=== PATIENT | male | born 1955 | race African-American/Black ===

== ENCOUNTER 2023-10-27 10:37 | Emergency (ER) | payer OTHER ==
[2023-10-27 10:48] VITALS: BMI 31.3
[2023-10-27] MEDS ORDERED: SODIUM CHLORIDE 1,000 ML IV SCH (12:00)
[2023-10-27] MEDS ORDERED: SODIUM CHLORIDE 2,722 ML IV ONE (12:02)
[2023-10-27] MEDS ORDERED: PIPERACILLIN/TAZOBACTAM 4.5 GM VIAL IVPB ONE (12:03)
[2023-10-27] MEDS ORDERED: VANCOMYCIN 1,000 MG in DEXTROSE 5%-WATER - 250 ML IVPB ONE (12:03)
[2023-10-27] MEDS ORDERED: PIPERACILLIN/TAZOB 4.5 GM 4.5 GM/100 ML BAG IVPB ONE (13:19)
[2023-10-27 13:20] LABS: HEMATOCRIT 32.7 % (35.4-49); HEMOGLOBIN 9.9 GM/dL (11.7-16.9); MCH 28.3 pg (25.7-33.7); MCHC 30.3 g/dl (32.0-35.9); MEAN CELL VOLUME 93.5 fl (80-96); MEAN PLT VOLUME 10.6 fl (7.5-11.1); PLATELET COUNT 292 10^3/uL (134-434); RDW 14.7 % (11.9-15.9); WHITE BLOOD COUNT 18.3 K/mm3 (4.0-10.0)
[2023-10-27 13:26] LABS: INR 1.24 (0.83-1.09); PROTHROMBIN TIME (PATIENT) 14.4 SEC (9.7-13.0)
[2023-10-27 13:29] LABS: ACTIVATED PTT 31.8 SECONDS (25.2-36.5)
[2023-10-27] MEDS ORDERED: ASPIRIN 81 MG CHEWABLE TABLETS PO ONE (13:39)
[2023-10-27 13:53] LABS: CHLORIDE 101 mmol/L (98-107); SODIUM 135 mmol/L (136-145)
[2023-10-27 13:54] LABS: CALCIUM 9.7 mg/dL (8.5-10.1)
[2023-10-27 13:55] LABS: ALBUMIN 2.4 g/dl (3.4-5.0); CO2 21 mmol/L (21-32)
[2023-10-27 13:56] LABS: BLOOD UREA NITROGEN 60.6 mg/dL (7-18)
[2023-10-27 13:58] LABS: CREATININE 2.6 mg/dL (0.55-1.3); SGOT/AST 8 U/L (15-37); SGPT/ALT 14 U/L (13-61)
[2023-10-27 13:59] LABS: CHOLESTEROL 121 mg/dL (50-200); TOT PROT 6.5 g/dl (6.4-8.2)
[2023-10-27 14:01] LABS: BILIRUBIN,TOTAL 0.4 mg/dL (0.2-1); LDL CHOLESTEROL (ONLY SJRH) 74 mg/dL (5-100)
[2023-10-27 14:02] LABS: ALK PHOS 109 U/L (45-117); HDL CHOLESTEROL 26 mg/dL (40-60)
[2023-10-27 14:03] LABS: VENOUS BASE EXCESS -5.6 mmol/L (-2-2); VENOUS O2 SATURATION 55.8 % (70-80); VENOUS PCO2 42.8 mmHg (38-52); VENOUS PH 7.299 (7.310-7.410)
[2023-10-27 14:15] LABS: ANION GAP 13 mmol/L (4-13); GLUCOSE,RANDOM 917 mg/dL (74-106); POTASSIUM 6.1 mmol/L (3.5-5.1)
[2023-10-27 14:20] LABS: EPI CELLS 2 /uL (0-25.1); HYALINE CASTS 0 /uL (0-3.1); URINE APPEARANCE CLEAR; URINE BACTERIA 7 /uL (0-1359); URINE BILIRUBIN NEGATIVE (NEGATIVE); URINE COLOR YELLOW; URINE GLUCOSE (UA) 3+ (NEGATIVE); URINE KETONE 1+ (NEGATIVE); URINE LEUK ESTERASE NEGATIVE (NEGATIVE); URINE NITRITE NEGATIVE (NEGATIVE); URINE PROTEIN 1+ (NEGATIVE); URINE RBC 20 /uL (0-23.9); URINE UROBILINOGEN 0.2 mg/dL (0.2-1.0); URINE WBC 1 /uL (0-25.8)
[2023-10-27] MEDS ORDERED: INSULIN REGULAR HUMAN 100 UNITS/ML *VIAL IVPUSH ONE (14:22)
[2023-10-27] MEDS ORDERED: SODIUM BICARBONATE 8.4% 50 MEQ/50 ML DISP.SYRIN IVPUSH ONE (14:23)
[2023-10-27] MEDS ORDERED: SODIUM ZIRCONIUM CYCLOSILICATE (LOKELMA) 5 GM PACKET PO ONE (14:23)
[2023-10-27] MEDS ORDERED: SODIUM BICARBONATE 8.4% 50 MEQ/50 ML DISP.SYRIN ONE (14:28)
[2023-10-27] MEDS ORDERED: SODIUM ZIRCONIUM CYCLOSILICATE (LOKELMA) 10 GM PACKET ONE (14:28)
[2023-10-27 14:34] LABS: LACTIC ACID 2.1 mmol/L (0.4-2.0)
[2023-10-27 14:35] LABS: ANISOCYTOSIS 0; HELMET CELLS 0; HOWELL-JOLLY BODIES 0; MACROCYTOSIS 0; OVALOCYTE 0; ROULEAU 0; SICKELED CELLS 0; TARGET CELLS 0; TEAR DROP CELLS 0; TOXIC GRANULATION 0
[2023-10-27] MEDS ORDERED: SODIUM CHLORIDE 0.9% 500 ML INFUS.BAG IV ONE (14:43)
[2023-10-27] MEDS ORDERED: INSULIN (NOVOLOG) ASPART 100 UNITS/ML 10ML VIAL SQ ONE (14:44)
[2023-10-27] MEDS ORDERED: ASPIRIN 81 MG CHEWABLE TABLETS ONE (14:44)
[2023-10-27] MEDS ORDERED: VANCOMYCIN 1 GRAM (PRE-DOCKED) 1,000 MG/250 ML BAG IVPB ONE (14:48)
[2023-10-27 16:00] LABS: CHLORIDE 104 mmol/L (98-107); POTASSIUM 5.4 mmol/L (3.5-5.1); SODIUM 140 mmol/L (136-145)
[2023-10-27 16:01] LABS: CALCIUM 9.9 mg/dL (8.5-10.1)
[2023-10-27 16:02] LABS: ANION GAP 11 mmol/L (4-13); BLOOD UREA NITROGEN 56.8 mg/dL (7-18); CO2 25 mmol/L (21-32)
[2023-10-27 16:05] LABS: CREATININE 2.6 mg/dL (0.55-1.3)
[2023-10-27 16:08] LABS: GLUCOSE,RANDOM 685 mg/dL (74-106)
[2023-10-27 16:13] VITALS: BP 143/68; PULSE 110; RESP 22
[2023-10-27 16:15] VITALS: TEMP 98.2
== END 2023-10-27 16:13 | disposition short-term general hospital (02) ==
LOC: JER 10:37
PROC: 3E03329 Introduction of Other Anti-infective into Peripheral Vein, Percutaneous Approach (ICD-10-PCS; principal; 2023-10-27)
PROC: 3E033GC Introduction of Other Therapeutic Substance into Peripheral Vein, Percutaneous Approach (ICD-10-PCS; 2023-10-27)
PROC: 3E033GC Introduction of Other Therapeutic Substance into Peripheral Vein, Percutaneous Approach (ICD-10-PCS; 2023-10-27)
PROC: 3E03329 Introduction of Other Anti-infective into Peripheral Vein, Percutaneous Approach (ICD-10-PCS; 2023-10-27)
PROC: 3E023GC Introduction of Other Therapeutic Substance into Muscle, Percutaneous Approach (ICD-10-PCS; 2023-10-27)
DX: A41.9 Sepsis, unspecified organism (principal); I63.9 Cerebral infarction, unspecified; R73.9 Hyperglycemia, unspecified; D84.9 Immunodeficiency, unspecified; L02.212 Cutaneous abscess of back [any part, except buttock and flank]; R47.81 Slurred speech; R26.81 Unsteadiness on feet; R35.0 Frequency of micturition; R53.1 Weakness; Z20.822 Contact with and (suspected) exposure to COVID-19
CPT/HCPCS: 0241U-QW; 36415; 70450-TC; 70496-TC; 70498-TC; 80048; 80053; 80061; 81003; 82010; 82550; 82803; 82962; 83036; 83605; 83930; 84484; 85025; 85610; 85730; 86850; 86900; 86901; 87040; 87086; 93005; 93010; 99291; Q9967

== ENCOUNTER 2025-01-03 14:26 | Inpatient (IN) | payer OTHER ==
[2025-01-03 17:07] LABS: VENOUS BASE EXCESS 4.5 mmol/L (-2-2); VENOUS O2 SATURATION 78.8 % (70-80); VENOUS PCO2 49.1 mmHg (38-52); VENOUS PH 7.403 (7.310-7.410)
[2025-01-03 17:10] LABS: ABSOLUTE IMMATURE GRANULOCYTES 0.09 x10^3/uL (0.0-0.031); BASOPHILS # 0.06 x10^3/uL (0.01-0.08); EOSINOPHIL % 0.8 % (0.8-7.0); EOSINOPHILS # 0.09 x10^3/uL (0.04-0.54); HEMOGLOBIN 9.1 g/dL (13.7-17.5); MCHC 30.3 g/dl (32.3-36.5); MEAN PLT VOLUME 11.1 fl (9.4-12.4); MONOCYTE # 1.09 x10^3/uL (0.30-0.82); MONOCYTE % 10.1 % (5.3-12.2); PLATELET COUNT 318 x10^3/uL (163-337); RDW 18.8 % (12.2-16.4)
[2025-01-03 17:32] LABS: POTASSIUM 4.3 mmol/L (3.5-5.1)
[2025-01-03 17:34] LABS: CALCIUM 10.4 mg/dL (8.5-10.1)
[2025-01-03 17:35] LABS: ALBUMIN 2.4 g/dl (3.4-5.0); BLOOD UREA NITROGEN 54.5 mg/dL (7-18)
[2025-01-03 17:37] LABS: CREATININE 1.4 mg/dL (0.55-1.3)
[2025-01-03 17:39] LABS: BILIRUBIN,TOTAL 0.4 mg/dL (0.2-1); TOT PROT 8.2 g/dl (6.4-8.2)
[2025-01-03 19:44] LABS: N-TERMINAL BNP 1699.6 pg/ml (5-125)
[2025-01-04] MEDS: INSULIN ASPART SLIDING SCALE (NOVOLOG) 1 VIAL SQ SCH (03:02)
[2025-01-04] MEDS: INSULIN NPH HUMAN ISOPHANE SQ SCH (05:22)
[2025-01-04] MEDS: HEPARIN NA (PORCINE) 5,000 UNITS/ML 1ML VIAL SQ SCH (05:35)
[2025-01-04] MEDS ORDERED: INSULIN NPH HUMAN ISOPHANE SQ SCH (06:00)
[2025-01-04] MEDS: INSULIN (NOVOLOG MIX 70/30) 100 UNITS/ML MDV SQ SCH (06:22)
[2025-01-04] MEDS: ALBUTEROL SO4 2.5/IPRATROPIUM 0.5 INH SOL 3 ML VIAL.NEB. NEB SCH (08:05)
[2025-01-04 08:58] LABS: ABSOLUTE IMMATURE GRANULOCYTES 0.07 x10^3/uL (0.0-0.031); BASOPHILS # 0.07 x10^3/uL (0.01-0.08); EOSINOPHIL % 1.1 % (0.8-7.0); HEMATOCRIT 29.2 % (40.1-51.0); HEMOGLOBIN 8.5 g/dL (13.7-17.5); MCHC 29.1 g/dl (32.3-36.5); MEAN CELL VOLUME 99.3 fl (79.0-92.2); MEAN PLT VOLUME 10.6 fl (9.4-12.4); MONOCYTE # 1.26 x10^3/uL (0.30-0.82); MONOCYTE % 13.6 % (5.3-12.2); PLATELET COUNT 282 x10^3/uL (163-337); RDW 18.9 % (12.2-16.4)
[2025-01-04 09:05] LABS: POTASSIUM 3.8 mmol/L (3.5-5.1)
[2025-01-04 09:11] LABS: CALCIUM 10.4 mg/dL (8.5-10.1)
[2025-01-04 09:12] LABS: ALBUMIN 2.3 g/dl (3.4-5.0); BLOOD UREA NITROGEN 49.8 mg/dL (7-18)
[2025-01-04 09:15] LABS: CREATININE 1.3 mg/dL (0.55-1.3); PHOSPHOROUS 3.4 mg/dL (2.5-4.9)
[2025-01-04 09:17] LABS: BILIRUBIN,TOTAL 0.5 mg/dL (0.2-1); TOT PROT 7.5 g/dl (6.4-8.2)
[2025-01-04 09:32] LABS: EPI CELLS 24 /uL (0-25.1); HYALINE CASTS 0 /uL (0-3.1); URINE APPEARANCE CLEAR; URINE BACTERIA 7 /uL (0-1359); URINE BILIRUBIN NEGATIVE (NEGATIVE); URINE COLOR YELLOW; URINE GLUCOSE (UA) NEGATIVE (NEGATIVE); URINE KETONE NEGATIVE (NEGATIVE); URINE LEUK ESTERASE TRACE (NEGATIVE); URINE NITRITE NEGATIVE (NEGATIVE); URINE PROTEIN 3+ (NEGATIVE); URINE RBC 25 /uL (0-23.9); URINE UROBILINOGEN 0.2 mg/dL (0.2-1.0); URINE WBC 64 /uL (0-25.8)
[2025-01-04] MEDS: levETIRAcetam 500 MG/5 ML ORAL SOLUTION (UNIT-DOSE CUPS) PEG SCH (09:35)
[2025-01-04] MEDS: amLODIPine BESYLATE 10 MG TABLET (FP) PEG SCH (09:36)
[2025-01-04] MEDS: BRIMONIDINE TARTRATE 0.2% OPHTHALMIC 5 ML BOTTLE OU SCH (09:36)
[2025-01-04] MEDS: CARVEDILOL 25 MG TABLET (FP) PEG SCH (09:36)
[2025-01-04] MEDS: predniSONE 5 MG TABLET (UD) PEG SCH (09:36)
[2025-01-04] MEDS: Lacosamide 50 MG/5 ML ORAL SOLUTION UNIT CUPS PEG SCH (09:36)
[2025-01-04] MEDS ORDERED: ENOXAPARIN NA (PORCINE) 40 MG/0.4 ML DISP.SYRIN SQ SCH (10:00)
[2025-01-04] MEDS ORDERED: PATIENT'S OWN MEDICATION (NON-FORMULARY) (Tenofovir Alafenamide 25 MG Tablet) PEG SCH (10:00)
[2025-01-04] MEDS: PIPERACILLIN/TAZOB 3.375 GM 3.375 GM in DEXTROSE 5%-WATER - 50 ML IVPB SCH (10:13)
[2025-01-04] MEDS: FAMOTIDINE 20 MG/2.5 ML ORAL LIQUID PEG SCH (12:19)
[2025-01-04 14:11] LABS: HCV DIAGNOSTIC IN-HOUSE W/RFLX NON-REACTIVE (NONREACTIVE); HIV INTERPRETATION NEGATIVE (NEGATIVE)
[2025-01-04 14:39] VITALS: BMI 25.7
[2025-01-04] MEDS ORDERED: INSULIN ASPART SLIDING SCALE (NOVOLOG) 1 VIAL SQ ONE (16:50)
[2025-01-04] MEDS: AMINO ACIDS/PROTEIN HYDROLYS 30 ML LIQUID.PKT PO SCH (17:13)
[2025-01-04] MEDS ORDERED: SILODOSIN 4 MG PEG SCH (22:00)
[2025-01-04] MEDS: ATORVASTATIN CA 10 MG TABLET (FP) PEG SCH (22:12)
[2025-01-04] MEDS: LATANOPROST 0.005% OPHTH SOLN 2.5ML BOTTLE OU SCH (23:33)
[2025-01-05 07:25] VITALS: RESP 18
[2025-01-05] MEDS: ZINC SULFATE 220 MG CAPSULE (FP) PO SCH (09:01)
[2025-01-05] MEDS: ASCORBIC ACID 500 MG TABLET (FP) PO SCH (09:01)
[2025-01-05 17:04] VITALS: TEMP 97.9
[2025-01-06] MEDS: HALOPERIDOL LACTATE 5 MG/ML IM ONE (02:44)
[2025-01-06] MEDS: LORazepam 2 MG/ML SDV VIAL IVPUSH ONE (05:34)
[2025-01-06 11:24] VITALS: BP 159/64; PULSE 68
[2025-01-06] MEDS ORDERED: PIPERACILLIN/TAZOB 3.375 GM 3.375 GM in DEXTROSE 5%-WATER - 50 ML IVPB SCH (12:45)
[2025-01-06] MEDS: PIPERACILLIN/TAZOB 3.375 GM 50 ML IVPB SCH (13:24)
== END 2025-01-06 20:04 | DRG 193 ==
LOC: JER 14:26 → JERBED 15:03 → J8W 01-04 01:26
PROVIDERS: ADMIT Internal Medicine; ATTEND Nurse Practitioner Family
DX: J18.9 Pneumonia, unspecified organism (principal); L89.154 Pressure ulcer of sacral region, stage 4; B18.1 Chronic viral hepatitis B without delta-agent; Z94.0 Kidney transplant status; E44.0 Moderate protein-calorie malnutrition; E78.5 Hyperlipidemia, unspecified; Z68.25 Body mass index [BMI] 25.0-25.9, adult; E11.9 Type 2 diabetes mellitus without complications; E11.22 Type 2 diabetes mellitus with diabetic chronic kidney disease; I12.9 Hypertensive chronic kidney disease with stage 1 through stage 4 chronic kidney disease, or unspecified chronic kidney disease; N18.9 Chronic kidney disease, unspecified
CPT/HCPCS: 0241U-QW; 36415; 71045-TC-FY; 71250-TC; 80053; 81003; 82803; 82962; 83036; 83605; 83735; 83880; 84100; 84484; 85025; 86480; 86803; 87040; 87070; 87086; 87116; 87186; 87205; 87206; 87389; 93005; 93010; 94640; 99285-25; J1644